=== PATIENT | male | born 1955 | race Caucasian/White ===

== ENCOUNTER → 2017-03-17 | Outpatient (CLI) | payer MEDICARE ==
[~2017-03-17] MED LIST: ALPRAZOLAM0.5 MG PO; ASPIR 8181 MG PO; BENTYL 20MG TAB20 MG PO; LASIX20 MG PO; OXYCODONE HCL10 MG PO; PROTONIX 40 MG40 M1 PO; TOPROL XL 50 MG50 MG PO; VITAMIN B-1000 MCG/M IM
== END ==
LOC: US 07:38
DX: R79.89 Other specified abnormal findings of blood chemistry (principal); Z79.82 Long term (current) use of aspirin; Z79.899 Other long term (current) drug therapy

== ENCOUNTER → 2017-03-19 | Outpatient (CLI) | payer MEDICARE, OTHER ==
[2017-03-19 17:04] LABS: HEMOGLOBIN 17.1 gm/dl (14.0-17.5); RED BLOOD COUNT 5.57 M/UL (4.20-5.50); WHITE BLOOD COUNT 4.7 K/UL (4.5-11.0)
[2017-03-19 17:25] LABS: BUN/CREATININE RATIO 18 (0-10)
== END ==
LOC: LAB 16:31
PROVIDERS: Emergency Medicine
DX: J31.2 Chronic pharyngitis (principal); R04.2 Hemoptysis; I10 Essential (primary) hypertension; R53.83 Other fatigue; Z79.82 Long term (current) use of aspirin
CPT/HCPCS: 71020; 80053; 85027

== ENCOUNTER → 2017-03-23 | Outpatient (CLI) | payer MEDICARE, OTHER | LOC: US 07:45 | DX: R79.89 Other specified abnormal findings of blood chemistry (principal); Z79.82 Long term (current) use of aspirin; Z79.899 Other long term (current) drug therapy; R93.2 Abnormal findings on diagnostic imaging of liver and biliary tract | CPT/HCPCS: 76705 ==

== ENCOUNTER → 2017-04-24 | Outpatient (CLI) | payer MEDICARE, SELFPAY | LOC: CT 15:00 | DX: R04.2 Hemoptysis (principal) | CPT/HCPCS: 36415; 71260; 82565; 84520; J7050; Q9962 ==

== ENCOUNTER → 2017-05-11 | Outpatient (CLI) | payer MEDICARE, OTHER | LOC: HEART 5 15:54 | DX: R06.00 Dyspnea, unspecified (principal); R04.2 Hemoptysis; Z72.0 Tobacco use | CPT/HCPCS: 94010 ==

== ENCOUNTER → 2017-05-14 | Day surgery (SDC) | payer MEDICARE, OTHER | END | disposition home or self-care (01) | LOC: OR 06:34 | PROVIDERS: Internal Medicine Pulmonary Disease | PROC: 0BJ08ZZ Inspection of Tracheobronchial Tree, Via Natural or Artificial Opening Endoscopic (ICD-10-PCS; principal; 2017-05-14 07:30) | DX: J42 Unspecified chronic bronchitis (principal); R04.2 Hemoptysis; I10 Essential (primary) hypertension; M19.90 Unspecified osteoarthritis, unspecified site; G89.29 Other chronic pain; M54.9 Dorsalgia, unspecified; Z87.891 Personal history of nicotine dependence; Z86.19 Personal history of other infectious and parasitic diseases; Z83.3 Family history of diabetes mellitus; Z79.82 Long term (current) use of aspirin; Z79.899 Other long term (current) drug therapy | CPT/HCPCS: J7120 ==